=== PATIENT | male | born 1995 ===

== ENCOUNTER 2018-06-05 02:07 | Emergency (ER) | payer OTHER ==
[2018-06-05 03:48] VITALS: BP 133/79; PULSE 73; RESP 16; TEMP 98.7; O2SAT 99
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
== END 2018-06-05 07:16 | disposition home or self-care (01) ==
LOC: H.ER 02:07
DX: M79.10 Myalgia, unspecified site (principal); M54.2 Cervicalgia; M54.9 Dorsalgia, unspecified; V43.52XA Car driver injured in collision with other type car in traffic accident, initial encounter
CPT/HCPCS: 96372; 99282; J1885